=== PATIENT | male | born 1995 | race Two or more races ===

== ENCOUNTER 2023-04-05 19:33 | Emergency (ER) | payer MEDICAID, OTHER ==
[~2023-04-05] VITALS: Ht 167.6 cm; Wt 94.6 kg
[2023-04-05 20:26] LABS: Urine Bacteria NONE SEEN /hpf (None Seen); Urine Blood Negative /uL (Negative); Urine Clarity Clear (Clear); Urine Color Yellow (Yellow); Urine Hyaline Cast FEW /lpf (0 - 2); Urine Mucus FEW (None Seen); Urine Protein, UAD Negative (Negative); Urine Specific Gravity 1.026 (1.001-1.035); Urine Urobilinogen Normal (Negative); Urine WBC <1 /hpf (0 - 3)
[2023-04-05 23:49] VITALS: BP 137/79; PULSE 98; RESP 16; TEMP 97.7; O2SAT 99
[2023-04-06] MEDS ORDERED: PENICILLIN G BENZ 600000 UNIT/ML 1ML SYRG IM ONE
[2023-04-06] MEDS ORDERED: PENICILLIN G PROC & BENZAT 1200000 UNITS/2 ML SYRG IM ONE (00:15)
[2023-04-07 07:06] LABS: RPR Non Reactive (Non Reactive)
[2023-04-08 07:06] LABS: Chlamydia Trachomatis, NAA Negative (Negative); Neisseria gonorrhoeae, NAA Negative (Negative)
== END 2023-04-06 00:46 | disposition home or self-care (01) ==
LOC: ER 19:33
DX: A51.0 Primary genital syphilis (principal)
CPT/HCPCS: 81001; 86592; 86703; 87491; 87591; 96372; 99283; J0558; J0561